=== PATIENT | female | born 1945 | race Caucasian/White ===

== ENCOUNTER 2017-07-02 11:55 | Emergency (ER) | payer MEDICARE ==
--- NOTE | 2017-07-02 12:48 | ED ---
Lower Extremity - HPI Summary HPI Summary: Patient presents to the ED with CC of right lower leg redness/swelling and warmth x 2 weeks. She was diagnosed with cellulitis last sunday and was given Keflex x 1 week. She states she feels the redness has been improving. Patient is currently taking on Janoven and is on coumadin for a-fib. She states she had an US of the right leg already which was negitive for DVT. Pt. does not feel ill, and all her symptoms are localized to RLE. and offers she is simply here due to her children's mind at ease. Despite the Keflex 500mg TID x 7 days, she still feels the cellultiis is present, although improved. She notes to some swelling throughout the right lower extremity which is worse in the AM and better in the evenings. She has been told she has some vascular insufficiency, but has an appt in Aug for follow up. Denies fevers, chills or sweats. Otherwise feeling well. - History of Current Complaint Hx Obtained From: Patient Severity Initially: Mild Severity Currently: Mild Pain Intensity: 2 Pain Scale Used: 0-10 Numeric Timing: Constant Location: Is Discrete @ - right lower extremity BTK Character Of Pain: Dull, Aching Associated Signs And Symptoms: Positive: Swelling, Redness Aggravating Factor(s): Standing, Ambulation Alleviating Factor(s): Rest Able to Bear Weight: Yes - Risk Factors Gout Risk Factors: Age Over 40, Diabetes, Obesity, Peripherial Vascular Disease DVT Risk Factors: Negative Septic Arthritis Risk Factor: Negative <Jerri Trejo - Last Filed: 07/02/17 13:28> <Justa Martínez - Last Filed: 07/04/17 07:57> - History of Current Complaint Chief Complaint: EDExtremityLower Stated Complaint: RT LEG SWELLING/SORE TO TOUCH Time Seen by Provider: 07/02/17 12:43 - Allergies/Home Medications Allergies/Adverse Reactions: Allergies Allergy/AdvReac Type Severity Reaction Status Date / Time No Known Allergies Allergy Verified 07/02/17 13:15 PMH/Surg Hx/FS Hx/Imm Hx Previously Healthy: Yes Infectious Disease History: Denies: Traveled Outside the [place] in Last 30 Days - Social History Occupation: Employed Full-time Lives: Alone Alcohol Use: None Hx Substance Use: No Substance Use Type: Reports: Cocaine Hx Tobacco Use: No Smoking Status (MU): Never Smoked Tobacco <Jerri Trejo - Last Filed: 07/02/17 13:28> Review of Systems Constitutional: Negative Eyes: Negative Cardiovascular: Negative Respiratory: Negative Positive: no symptoms reported, see HPI Positive: Myalgia - calf pain Positive: Rash - right lower extremity redness, warmth and swelling Neurological: Negative Psychological: Normal All Other Systems Reviewed And Are Negative: Yes <Jerri Trejo - Last Filed: 07/02/17 13:28> Physical Exam Triage Information Reviewed: Yes Vital Signs On Initial Exam: Initial Vitals Temp Pulse Resp BP Pulse Ox 98.7 F 72 20 136/87 95 07/02/17 12:16 07/02/17 12:16 07/02/17 12:16 07/02/17 12:16 07/02/17 12:16 Vital Signs Reviewed: Yes Appearance: Positive: Well-Appearing, Well-Nourished Skin: Positive: Warm, Skin Color Reflects Adequate Perfusion, Other - right lower extremity warmth, redness and swelling Head/Face: Positive: Normal Head/Face Inspection Eyes: Positive: Normal, EOMI Neck: Positive: Supple, No Lymphadenopathy Respiratory/Lung Sounds: Positive: Clear to Auscultation, Breath Sounds Present Cardiovascular: Positive: Normal, RRR, Pulses are Symmetrical in both Upper and Lower Extremities Musculoskeletal: Positive: Strength/ROM Intact Neurological: Positive: Normal, Sensory/Motor Intact, Alert, Oriented to Person Place, Time, Speech Normal Psychiatric: Positive: Normal AVPU Assessment: Alert <Jerri Trejo - Last Filed: 07/02/17 13:28> Vital Signs On Initial Exam: Initial Vitals Temp Pulse Resp BP Pulse Ox 98.7 F 72 20 136/87 95 07/02/17 12:16 07/02/17 12:16 07/02/17 12:16 07/02/17 12:16 07/02/17 12:16 <Justa Martínez - Last Filed: 07/04/17 07:57> Diagnostics - Vital Signs Vital Signs Temp Pulse Resp BP Pulse Ox 07/02/17 12:16 98.7 F 72 20 136/87 95 <Jerri Trejo - Last Filed: 07/02/17 13:28> - Vital Signs Vital Signs Temp Pulse Resp BP Pulse Ox 07/02/17 13:46 98.6 F 70 20 132/84 07/02/17 13:02 98.7 F 72 20 136/87 99 07/02/17 12:16 98.7 F 72 20 136/87 95 <Justa Martínez - Last Filed: 07/04/17 07:57> Lower Extremity Course/Dx - Course Course Of Treatment: Right lower extremity pain with redness and swelling. Patient dx with cellulitis last week and given keflex x 1 week with minimal improvement of symptoms. US r/o DVT last week, although patient has some vascular insufficiency, Pulses +2 bilaterally and cap refill < 2 sec. She is otherwise feeling well. Discussed the option of changing abx medication and patient agrees with plan. US already performed, so less concerned with DVT. Patient will follow up with vascular as planned in Aug and PCP next week. I have also given her a Moh's surgery physician in [place] to re-evaluate her skin cancer on her contralateral leg. She is OK for discharge. - Diagnoses Differential Diagnosis/HQI/PQRI: Positive: Cellulitis, Gout, Infection, Strain <Jerri Trejo - Last Filed: 07/02/17 13:28> <Justa Martínez - Last Filed: 07/04/17 07:57> - Diagnoses Provider Diagnoses: Cellulitis, leg Discharge <Jerri Trejo - Last Filed: 07/02/17 13:28> <Justa Martínez - Last Filed: 07/04/17 07:57> - Discharge Plan Condition: Stable Disposition: HOME Prescriptions: Clindamycin Cap(NF) [Clindamycin Cap 300 mg Cap(NF)] 300 mg PO Q6H #28 cap Patient Education Materials: Cellulitis (ED) Referrals: Non Staff,Doctor [Primary Care Provider] - Additional Instructions: Please follow up with your PCP If symptoms become worse, return to the ED. Follow up with Dr. Jeison Arndt for skin cancer treatment and evaluation. [facility] Address: [address] [place] [address] I have given you Clindamycin 300mg four times daily for 7 days for cellulitis of the lower extremity. Attestation Statement User Type: Provider - I was available for consult. This patient was seen by the PIERRE. The patient was not presented to, seen by, or examined by me. -Diego <Justa Martínez - Last Filed: 07/04/17 07:57>
[2017-07-02 13:47] VITALS: BP 132/84
== END 2017-07-02 13:46 | disposition home or self-care (01) ==
LOC: ED 11:55
DX: L03.115 Cellulitis of right lower limb (principal); R21 Rash and other nonspecific skin eruption
CPT/HCPCS: 99282